=== PATIENT | female | born 1965 | race Caucasian/White ===

== ENCOUNTER 2021-02-02 19:01 | Inpatient (IN) ==
[2021-02-02] MEDS ORDERED: Ondansetron 4 MG/2 ML VIAL IVP PRN (22:49)
[2021-02-02] MEDS ORDERED: *HR* OxyCODONE Immed Rel 5 MG TABLET PO PRN (22:49)
[2021-02-02] MEDS ORDERED: *HR* HYDROcodone/Acet 5/325 mg TABLET PO PRN (22:49)
[2021-02-02] MEDS ORDERED: Naloxone 0.4 MG/ML INJ IVP PRN (22:49)
[2021-02-02 23:36] LABS: Basophils % 0.3 %; Eosinophils % 0.2 %; Hematocrit 31.8 % (35.3-44.9); Hemoglobin 10.1 g/dL (11.5-15.4); Immature Granulocytes % 3.3 % (0-4); Lymphocytes # 0.9 K/mcL (0.6-4.6); Lymphocytes % 7.9 %; Mean Corpuscular HGB Conc 31.8 g/dL (31.6-35.5); Mean Corpuscular Hemoglobin 29.5 pg (28.0-33.3); Mean Platelet Volume 8.8 fL (9.4-12.4); Monocytes % 8.3 %; Neutrophils # 9.5 K/mcL (1.6-8.9); Platelet Count 326 K/mcL (140-400); Red Blood Count 3.42 M/mcL (3.82-4.97); Red Cell Distribution Width 13.2 % (11.5-14.5); White Blood Count 11.9 K/mcL (4.3-11.1)
[2021-02-02] MEDS: Piperacillin/Tazobactam 3.375 GM in 0.9 % Sodium Chloride Mini Bag 100 ML IVPB SCH (23:39)
[2021-02-02] MEDS: 0.9 % Sodium Chloride 1,000 ML IVC SCH (23:40)
[2021-02-02 23:43] LABS: Alanine Aminotransferase 26 Units/L (7-52); Albumin 2.6 g/dL (3.5-5.7); Albumin/Globulin Ratio 0.7 (1.1-2.2); Alkaline Phosphatase 104 Units/L (34-104); Aspartate Amino Transferase 23 Units/L (13-39); BUN/Creatinine Ratio 26 (6-26); Bilirubin,Total 1.1 mg/dL (0.3-1.0); Blood Urea Nitrogen 16 mg/dL (6-20); Calcium 8.1 mg/dL (8.6-10.3); Carbon Dioxide 22 mEq/L (23-29); Chloride 102 mEq/L (98-107); Glucose 129 mg/dL (70-105); INR 1.7; Osmolality,Calculated 281 (280-300); Potassium 3.5 mEq/L (3.5-5.1); Prothrombin Time 19.3 Seconds (9.4-12.1); Sodium 134 mEq/L (136-145); Total Protein 6.6 g/dL (6.4-8.9); eGFR For African Americans > 60 (> 60); eGFR For Non-African Americans > 60 (> 60)
[2021-02-03 04:59] LABS: Hematocrit 31.1 % (35.3-44.9); Hemoglobin 9.8 g/dL (11.5-15.4); Mean Corpuscular HGB Conc 31.5 g/dL (31.6-35.5); Mean Corpuscular Hemoglobin 29.8 pg (28.0-33.3); Mean Corpuscular Volume 94.5 fL (83.0-100.0); Mean Platelet Volume 8.9 fL (9.4-12.4); Platelet Count 314 K/mcL (140-400); Red Blood Count 3.29 M/mcL (3.82-4.97); Red Cell Distribution Width 13.2 % (11.5-14.5); White Blood Count 11.4 K/mcL (4.3-11.1)
[2021-02-03 05:18] LABS: BUN/Creatinine Ratio 25 (6-26); Blood Urea Nitrogen 15 mg/dL (6-20); Carbon Dioxide 21 mEq/L (23-29); Chloride 103 mEq/L (98-107); Glucose 143 mg/dL (70-105); Osmolality,Calculated 279 (280-300); Potassium 3.4 mEq/L (3.5-5.1); Sodium 133 mEq/L (136-145); eGFR For African Americans > 60 (> 60); eGFR For Non-African Americans > 60 (> 60)
[2021-02-03] MEDS: *HR* Heparin 5,000 UNIT/ML VIAL SQ SCH ×3 (05:35→22:44)
[2021-02-03 05:40] LABS: Ferritin 649 ng/mL (10-120); Iron < 10 mcg/dL (50-170); Transferrin 115 mg/dL (203-362)
[2021-02-03 05:44] LABS: Folate 12.6 ng/mL (3.0-16.0)
[2021-02-03] MEDS: 0.9 % Sodium Chloride 1,000 ML IVC SCH (07:48)
[2021-02-03] MEDS: Piperacillin/Tazobactam 3.375 GM in 0.9 % Sodium Chloride Mini Bag 100 ML IVPB SCH ×2 (07:54→14:55)
[2021-02-03] MEDS: Vancomycin 1,250 MG/262.5 ML IV.SOLN IVPB SCH ×2 (08:18→20:18)
[2021-02-03 11:05] LABS: Bacteria,Urine Few per hpf (None-Few); Bilirubin,Urine Negative (Negative); Blood,Urine Negative (Negative); Clarity,Urine Turbid (Clear); Color,Urine Yellow (Yellow); Glucose,Urine (UA) Normal (Normal); Ketones,Urine Negative (Negative); Leukocyte Esterase,Urine Small (Negative); Nitrite,Urine Negative (Negative); Protein,Urine 50 mg/dL (Neg-Trace); Specific Gravity,Urine > 1.030 (1.010-1.025); Squamous Epithelial Cell,Urine Moderate per hpf (None-Few); WBC,Urine 15-30 per hpf (0-3)
[2021-02-03] MEDS ORDERED: Fluticasone Propionate Nasal 50 MCG/SPRAY BOTTLE NS PRN (14:18)
[2021-02-03] MEDS: BuPROPion XL (24 HR) 150 MG TABLET PO SCH (14:52)
[2021-02-03] MEDS: PARoxetine 30 MG TABLET PO SCH (20:17)
[2021-02-03] MEDS: Topiramate 100 MG TABLET PO SCH (20:18)
[2021-02-03 20:21] LABS: Acinetobacter baumannii by PCR Not Detected (Not Detect); Candida albicans by PCR Not Detected (Not Detect); Candida glabrata by PCR Not Detected (Not Detect); Candida krusei by PCR Not Detected (Not Detect); Candida parapsilosis by PCR Not Detected (Not Detect); Candida tropicalis by PCR Not Detected (Not Detect); Enterobacter cloacae Cmplx PCR Not Detected (Not Detect); Enterobacteriaceae by PCR Not Detected (Not Detect); Enterococcus by PCR Not Detected (Not Detect); Escherichia coli by PCR Not Detected (Not Detect); Klebsiella oxytoca by PCR Not Detected (Not Detect); Klebsiella pneumoniae by PCR Not Detected (Not Detect); Proteus by PCR Not Detected (Not Detect); Pseudomonas aeruginosa by PCR Not Detected (Not Detect); Serratia marcescens by PCR Not Detected (Not Detect); Staphylococcus aureus by PCR DETECTED (Not Detect); Staphylococcus by PCR Not Detected (Not Detect); Streptococcus agalactiae(B)PCR Not Detected (Not Detect); Streptococcus by PCR Not Detected (Not Detect); Streptococcus pneumoniae PCR Not Detected (Not Detect); Streptococcus pyogenes (A) PCR Not Detected (Not Detect); mecA Methicillin-Resist Gene Not Detected (Not Detect)
[2021-02-04] MEDS: Piperacillin/Tazobactam 3.375 GM in 0.9 % Sodium Chloride Mini Bag 100 ML IVPB SCH ×4 (00:49→23:56)
[2021-02-04 01:32] LABS: Basophils % 0.4 %; Eosinophils % 0.3 %; Hematocrit 29.4 % (35.3-44.9); Hemoglobin 9.2 g/dL (11.5-15.4); Immature Granulocytes % 4.1 % (0-4); Lymphocytes # 1.3 K/mcL (0.6-4.6); Lymphocytes % 12.3 %; Mean Corpuscular HGB Conc 31.3 g/dL (31.6-35.5); Mean Corpuscular Hemoglobin 29.3 pg (28.0-33.3); Mean Corpuscular Volume 93.6 fL (83.0-100.0); Monocytes % 9.9 %; Neutrophils # 7.7 K/mcL (1.6-8.9); Platelet Count 326 K/mcL (140-400); Red Blood Count 3.14 M/mcL (3.82-4.97); Red Cell Distribution Width 13.4 % (11.5-14.5); White Blood Count 10.5 K/mcL (4.3-11.1)
[2021-02-04 01:48] LABS: Alanine Aminotransferase 37 Units/L (7-52); Albumin 2.4 g/dL (3.5-5.7); Albumin/Globulin Ratio 0.7 (1.1-2.2); Alkaline Phosphatase 101 Units/L (34-104); Aspartate Amino Transferase 52 Units/L (13-39); BUN/Creatinine Ratio 26 (6-26); Bilirubin,Direct 0.3 mg/dL (0.0-0.2); Bilirubin,Indirect 0.4 mg/dL (0.0-1.0); Bilirubin,Total 0.7 mg/dL (0.3-1.0); Blood Urea Nitrogen 16 mg/dL (6-20); Calcium 7.5 mg/dL (8.6-10.3); Carbon Dioxide 20 mEq/L (23-29); Chloride 104 mEq/L (98-107); Globulin 3.6 g/dL (2.4-3.5); Glucose 127 mg/dL (70-105); Osmolality,Calculated 281 (280-300); Potassium 3.4 mEq/L (3.5-5.1); Sodium 134 mEq/L (136-145); eGFR For African Americans > 60 (> 60); eGFR For Non-African Americans > 60 (> 60)
[2021-02-04] MEDS: *HR* Heparin 5,000 UNIT/ML VIAL SQ SCH ×3 (05:19→21:39)
[2021-02-04] MEDS: BuPROPion XL (24 HR) 150 MG TABLET PO SCH (07:42)
[2021-02-04] MEDS: Loratadine 10 MG TABLET PO SCH (07:42)
[2021-02-04] MEDS: Acetaminophen 325 MG TABLET PO PRN ×2 (08:35→15:31)
[2021-02-04] MEDS: Vancomycin 1,250 MG/262.5 ML IV.SOLN IVPB SCH ×2 (10:20→21:38)
[2021-02-04] MEDS: Lactobacillus 1 EACH CAP.SPRINK PO SCH ×2 (10:20→21:29)
[2021-02-04] MEDS: PARoxetine 30 MG TABLET PO SCH (21:37)
[2021-02-04] MEDS: Topiramate 100 MG TABLET PO SCH (21:38)
[2021-02-05 06:10] LABS: Basophils % 0.3 %; Eosinophils # 0.1 K/mcL (0.0-0.6); Eosinophils % 1.3 %; Hematocrit 29.2 % (35.3-44.9); Immature Granulocytes % 4.1 % (0-4); Lymphocytes % 11.1 %; Mean Corpuscular HGB Conc 30.8 g/dL (31.6-35.5); Mean Corpuscular Hemoglobin 29.3 pg (28.0-33.3); Mean Corpuscular Volume 95.1 fL (83.0-100.0); Mean Platelet Volume 8.9 fL (9.4-12.4); Monocytes # 0.8 K/mcL (0.0-1.3); Monocytes % 8.3 %; Neutrophils # 6.9 K/mcL (1.6-8.9); Platelet Count 340 K/mcL (140-400); Red Blood Count 3.07 M/mcL (3.82-4.97); Red Cell Distribution Width 13.5 % (11.5-14.5); Segmented Neutrophils % 74.9 %; White Blood Count 9.2 K/mcL (4.3-11.1)
[2021-02-05 06:40] LABS: BUN/Creatinine Ratio 22 (6-26); Blood Urea Nitrogen 15 mg/dL (6-20); Carbon Dioxide 22 mEq/L (23-29); Chloride 105 mEq/L (98-107); Glucose 122 mg/dL (70-105); Osmolality,Calculated 280 (280-300); Potassium 3.9 mEq/L (3.5-5.1); Sodium 134 mEq/L (136-145); eGFR For African Americans > 60 (> 60); eGFR For Non-African Americans > 60 (> 60)
[2021-02-05] MEDS: *HR* Heparin 5,000 UNIT/ML VIAL SQ SCH ×3 (06:52→21:52)
[2021-02-05] MEDS: Piperacillin/Tazobactam 3.375 GM in 0.9 % Sodium Chloride Mini Bag 100 ML IVPB SCH ×2 (08:15→16:37)
[2021-02-05] MEDS: Lactobacillus 1 EACH CAP.SPRINK PO SCH ×2 (08:18→21:52)
[2021-02-05] MEDS: Loratadine 10 MG TABLET PO SCH (08:18)
[2021-02-05] MEDS: BuPROPion XL (24 HR) 150 MG TABLET PO SCH (08:19)
[2021-02-05] MEDS: Acetaminophen 325 MG TABLET PO PRN (11:22)
[2021-02-05] MEDS: PARoxetine 30 MG TABLET PO SCH (21:49)
[2021-02-05] MEDS: Topiramate 100 MG TABLET PO SCH (21:52)
[2021-02-06] MEDS: Piperacillin/Tazobactam 3.375 GM in 0.9 % Sodium Chloride Mini Bag 100 ML IVPB SCH ×2 (00:22→09:34)
[2021-02-06] MEDS: Acetaminophen 325 MG TABLET PO PRN ×2 (01:36→13:14)
[2021-02-06] MEDS: *HR* Heparin 5,000 UNIT/ML VIAL SQ SCH ×3 (05:55→21:57)
[2021-02-06 07:24] LABS: Basophils # 0.1 K/mcL (0.0-0.2); Basophils % 0.6 %; Eosinophils # 0.2 K/mcL (0.0-0.6); Eosinophils % 1.9 %; Hematocrit 29.7 % (35.3-44.9); Immature Granulocytes % 4.9 % (0-4); Lymphocytes # 1.1 K/mcL (0.6-4.6); Lymphocytes % 13.4 %; Mean Corpuscular HGB Conc 30.3 g/dL (31.6-35.5); Mean Corpuscular Hemoglobin 28.9 pg (28.0-33.3); Mean Corpuscular Volume 95.5 fL (83.0-100.0); Mean Platelet Volume 8.7 fL (9.4-12.4); Monocytes # 0.6 K/mcL (0.0-1.3); Monocytes % 7.2 %; Neutrophils # 5.6 K/mcL (1.6-8.9); Platelet Count 344 K/mcL (140-400); Red Blood Count 3.11 M/mcL (3.82-4.97); Red Cell Distribution Width 13.8 % (11.5-14.5); White Blood Count 7.8 K/mcL (4.3-11.1)
[2021-02-06 08:04] LABS: BUN/Creatinine Ratio 21 (6-26); Blood Urea Nitrogen 15 mg/dL (6-20); Calcium 8.1 mg/dL (8.6-10.3); Carbon Dioxide 23 mEq/L (23-29); Chloride 106 mEq/L (98-107); Glucose 133 mg/dL (70-105); Osmolality,Calculated 285 (280-300); Potassium 3.8 mEq/L (3.5-5.1); Sodium 136 mEq/L (136-145); eGFR For African Americans > 60 (> 60); eGFR For Non-African Americans > 60 (> 60)
[2021-02-06] MEDS: Loratadine 10 MG TABLET PO SCH (09:17)
[2021-02-06] MEDS: Lactobacillus 1 EACH CAP.SPRINK PO SCH ×2 (09:17→21:57)
[2021-02-06] MEDS: BuPROPion XL (24 HR) 150 MG TABLET PO SCH (09:17)
[2021-02-06 12:08] LABS: C-Reactive Protein 168 mg/L (Less than 10)
[2021-02-06] MEDS ORDERED: Gadolinium Contrast Agent (WT Based) IV PRN (15:06)
[2021-02-06] MEDS ORDERED: Perflutren Lipid Microsphere 1.3 ML in 0.9 % Sodium Chloride 8.7 ML IVP PRN (15:09)
[2021-02-06] MEDS: ceFAZolin 2,000 MG in 0.9 % Sodium Chloride 100 ML IVPB SCH (17:22)
[2021-02-06] MEDS: PARoxetine 30 MG TABLET PO SCH (21:56)
[2021-02-06] MEDS: Topiramate 100 MG TABLET PO SCH (21:57)
[2021-02-07] MEDS: ceFAZolin 2,000 MG in 0.9 % Sodium Chloride 100 ML IVPB SCH ×4 (00:25→23:17)
[2021-02-07 02:16] LABS: Basophils % 0.5 %; Eosinophils # 0.1 K/mcL (0.0-0.6); Eosinophils % 1.2 %; Hematocrit 28.3 % (35.3-44.9); Hemoglobin 8.8 g/dL (11.5-15.4); Immature Granulocytes % 4.3 % (0-4); Lymphocytes # 1.1 K/mcL (0.6-4.6); Lymphocytes % 13.4 %; Mean Corpuscular HGB Conc 31.1 g/dL (31.6-35.5); Mean Corpuscular Hemoglobin 29.6 pg (28.0-33.3); Mean Corpuscular Volume 95.3 fL (83.0-100.0); Mean Platelet Volume 8.8 fL (9.4-12.4); Monocytes # 0.7 K/mcL (0.0-1.3); Monocytes % 8.2 %; Platelet Count 368 K/mcL (140-400); Red Blood Count 2.97 M/mcL (3.82-4.97); Red Cell Distribution Width 13.8 % (11.5-14.5); Segmented Neutrophils % 72.4 %; White Blood Count 8.3 K/mcL (4.3-11.1)
[2021-02-07 02:44] LABS: BUN/Creatinine Ratio 22 (6-26); Blood Urea Nitrogen 14 mg/dL (6-20); Carbon Dioxide 20 mEq/L (23-29); Chloride 106 mEq/L (98-107); Glucose 117 mg/dL (70-105); Osmolality,Calculated 282 (280-300); Potassium 4.1 mEq/L (3.5-5.1); Sodium 135 mEq/L (136-145); eGFR For African Americans > 60 (> 60); eGFR For Non-African Americans > 60 (> 60)
[2021-02-07] MEDS: *HR* Heparin 5,000 UNIT/ML VIAL SQ SCH (05:25)
[2021-02-07] MEDS: Acetaminophen 325 MG TABLET PO PRN ×3 (05:26→21:23)
[2021-02-07] MEDS: Loratadine 10 MG TABLET PO SCH (08:36)
[2021-02-07] MEDS: Lactobacillus 1 EACH CAP.SPRINK PO SCH ×2 (08:36→21:23)
[2021-02-07] MEDS: BuPROPion XL (24 HR) 150 MG TABLET PO SCH (08:37)
[2021-02-07] MEDS: PARoxetine 30 MG TABLET PO SCH (21:23)
[2021-02-07] MEDS: Topiramate 100 MG TABLET PO SCH (21:24)
[2021-02-08 08:07] LABS: Basophils # 0.1 K/mcL (0.0-0.2); Basophils % 0.8 %; Eosinophils # 0.1 K/mcL (0.0-0.6); Eosinophils % 1.3 %; Hemoglobin 8.7 g/dL (11.5-15.4); Immature Granulocytes % 3.9 % (0-4); Lymphocytes # 1.1 K/mcL (0.6-4.6); Lymphocytes % 13.9 %; Mean Corpuscular Hemoglobin 28.7 pg (28.0-33.3); Mean Corpuscular Volume 95.7 fL (83.0-100.0); Mean Platelet Volume 8.7 fL (9.4-12.4); Monocytes # 0.7 K/mcL (0.0-1.3); Monocytes % 9.4 %; Neutrophils # 5.4 K/mcL (1.6-8.9); Platelet Count 371 K/mcL (140-400); Red Blood Count 3.03 M/mcL (3.82-4.97); Red Cell Distribution Width 13.7 % (11.5-14.5); Segmented Neutrophils % 70.7 %; White Blood Count 7.7 K/mcL (4.3-11.1)
[2021-02-08] MEDS: BuPROPion XL (24 HR) 150 MG TABLET PO SCH (08:10)
[2021-02-08] MEDS: Lactobacillus 1 EACH CAP.SPRINK PO SCH ×2 (08:10→20:03)
[2021-02-08] MEDS: Loratadine 10 MG TABLET PO SCH (08:10)
[2021-02-08] MEDS: ceFAZolin 2,000 MG in 0.9 % Sodium Chloride 100 ML IVPB SCH ×2 (08:13→15:29)
[2021-02-08 08:16] LABS: BUN/Creatinine Ratio 17 (6-26); Blood Urea Nitrogen 11 mg/dL (6-20); Calcium 8.1 mg/dL (8.6-10.3); Carbon Dioxide 22 mEq/L (23-29); Chloride 106 mEq/L (98-107); Glucose 103 mg/dL (70-105); Osmolality,Calculated 282 (280-300); Potassium 4.1 mEq/L (3.5-5.1); Sodium 136 mEq/L (136-145); eGFR For African Americans > 60 (> 60); eGFR For Non-African Americans > 60 (> 60)
[2021-02-08] MEDS: Acetaminophen 325 MG TABLET PO PRN ×2 (11:48→18:28)
[2021-02-08] MEDS: PARoxetine 30 MG TABLET PO SCH (20:02)
[2021-02-08] MEDS: Topiramate 100 MG TABLET PO SCH (20:03)
[2021-02-09] MEDS: ceFAZolin 2,000 MG in 0.9 % Sodium Chloride 100 ML IVPB SCH ×3 (01:26→18:15)
[2021-02-09 01:37] LABS: Adenovirus Not Detected (Not Detect); Bordetella Pertussis Not Detected (Not Detect); Chlamydophila pneumoniae Not Detected (Not Detect); Coronavirus 229E Not Detected (Not Detect); Coronavirus HKU1 Not Detected (Not Detect); Coronavirus NL63 Not Detected (Not Detect); Coronavirus OC43 Not Detected (Not Detect); Human Metapneumovirus Not Detected (Not Detect); Human Rhinovirus/Enterovirus Not Detected (Not Detect); Influenza A Subtype 2009 H1 Not Detected (Not Detect); Influenza B Not Detected (Not Detect); Mycoplasma pneumoniae Not Detected (Not Detect); Parainfluenza Virus 1 Not Detected (Not Detect); Parainfluenza Virus 2 Not Detected (Not Detect); Parainfluenza Virus 3 Not Detected (Not Detect); Parainfluenza Virus 4 Not Detected (Not Detect); Respiratory Syncytial Virus Not Detected (Not Detect); SARS-CoV-2 Not Detected (Not Detect)
[2021-02-09 04:32] LABS: Basophils # 0.1 K/mcL (0.0-0.2); Basophils % 0.9 %; Eosinophils # 0.1 K/mcL (0.0-0.6); Eosinophils % 1.1 %; Hematocrit 28.1 % (35.3-44.9); Hemoglobin 8.6 g/dL (11.5-15.4); Lymphocytes # 1.1 K/mcL (0.6-4.6); Lymphocytes % 14.3 %; Mean Corpuscular HGB Conc 30.6 g/dL (31.6-35.5); Mean Corpuscular Hemoglobin 28.8 pg (28.0-33.3); Mean Platelet Volume 8.4 fL (9.4-12.4); Monocytes # 0.7 K/mcL (0.0-1.3); Monocytes % 8.9 %; Neutrophils # 5.6 K/mcL (1.6-8.9); Platelet Count 375 K/mcL (140-400); Red Blood Count 2.99 M/mcL (3.82-4.97); Red Cell Distribution Width 13.8 % (11.5-14.5); Segmented Neutrophils % 70.8 %
[2021-02-09 04:50] LABS: BUN/Creatinine Ratio 17 (6-26); Blood Urea Nitrogen 11 mg/dL (6-20); Calcium 8.3 mg/dL (8.6-10.3); Carbon Dioxide 22 mEq/L (23-29); Chloride 106 mEq/L (98-107); Glucose 120 mg/dL (70-105); Osmolality,Calculated 281 (280-300); Potassium 4.1 mEq/L (3.5-5.1); Sodium 135 mEq/L (136-145); eGFR For African Americans > 60 (> 60); eGFR For Non-African Americans > 60 (> 60)
[2021-02-09] MEDS: Lactobacillus 1 EACH CAP.SPRINK PO SCH (07:54)
[2021-02-09] MEDS: Loratadine 10 MG TABLET PO SCH (07:54)
[2021-02-09] MEDS: BuPROPion XL (24 HR) 150 MG TABLET PO SCH (07:54)
[2021-02-09] MEDS ORDERED: Acetaminophen IV 1,000 MG/100 ML BAG IVPB ONE (09:44)
[2021-02-09] MEDS ORDERED: Bacitracin 50,000 UNIT, Polymyxin B Sulfate 500,000 UNIT, Sodium Chloride IRRigation 1,... IR ONE (13:00)
[2021-02-09] MEDS ORDERED: *HR* Succinylcholine 200 MG/10 ML VIAL IVP ONE (13:55)
[2021-02-09] MEDS ORDERED: Lidocaine -MPF 2% 2 ML VIAL ONE (13:55)
[2021-02-09] MEDS ORDERED: Ondansetron 4 MG/2 ML VIAL ONE (13:55)
[2021-02-09] MEDS ORDERED: Dexamethasone 4 MG/ML VIAL ONE (13:55)
[2021-02-09] MEDS ORDERED: *HR* Rocuronium Bromide 50 MG/5 ML VIAL ONE (13:55)
[2021-02-09] MEDS ORDERED: *HR* Propofol 200 MG/20 ML VIAL IVP ONE (13:56)
[2021-02-09] MEDS ORDERED: *HR* Midazolam HCl 2 MG/2 ML VIAL ONE (13:56)
[2021-02-09] MEDS ORDERED: *HR* FentaNYL (PF) 100 MCG/2 ML VIAL ONE (13:56)
[2021-02-09] MEDS ORDERED: Vancomycin 1,000 MG VIAL ONE (13:57)
[2021-02-09] MEDS ORDERED: *HR* Remifentanil 1 MG VIAL IVP ONE (13:59)
[2021-02-09] MEDS ORDERED: *HR* HYDROMORPHONE 2 MG/ML VIAL ONE (16:51)
[2021-02-09] MEDS ORDERED: *HR* HYDROcodone/Acet 5/325 mg TABLET PO PRN (17:18)
[2021-02-09] MEDS ORDERED: Ondansetron 4 MG/2 ML VIAL IVP PRN ×2 (17:18→18:17)
[2021-02-09] MEDS ORDERED: Promethazine 6.25 MG in Water for inj. (sterile) 20 ML IVPB PRN (17:18)
[2021-02-09] MEDS ORDERED: *HR* Labetalol 20 MG/4 ML SYRINGE IVP PRN (17:18)
[2021-02-09] MEDS ORDERED: *HR* HYDROmorphone (PF) 1 MG/ML SYRINGE IVP PRN (17:18)
[2021-02-09] MEDS ORDERED: *HR* HYDROmorphone (PF) 1 MG/ML SYRINGE ONE (17:32)
[2021-02-09] MEDS ORDERED: Ringers Solution, Lactated 1,000 ML ONE (17:37)
[2021-02-09] MEDS ORDERED: Naloxone 0.4 MG/ML INJ IVP PRN (18:17)
[2021-02-09] MEDS: *HR* OxyCODONE Immed Rel 5 MG TABLET PO PRN (18:59)
[2021-02-10] MEDS: *HR* HYDROcodone/Acet 5/325 mg TABLET PO PRN ×2 (02:28→22:52)
[2021-02-10] MEDS: Ringers Solution, Lactated 1,000 ML IVC SCH ×2 (03:42→14:17)
[2021-02-10] MEDS: Acetaminophen 325 MG TABLET PO PRN ×3 (03:48→19:43)
[2021-02-10] MEDS: *HR* OxyCODONE Immed Rel 5 MG TABLET PO PRN ×2 (07:43→14:17)
[2021-02-10] MEDS: MODAFINIL 200 MG PO SCH (08:10)
[2021-02-10] MEDS: CeFAZolin 2 GM/120 ML BAG IVPB SCH ×2 (16:13→23:54)
[2021-02-11] MEDS: Topiramate 100 MG TABLET PO SCH ×2 (00:21→20:19)
[2021-02-11] MEDS: Ringers Solution, Lactated 1,000 ML IVC SCH ×2 (01:22)
[2021-02-11 06:03] LABS: Basophils % 0.6 %; Eosinophils # 0.1 K/mcL (0.0-0.6); Eosinophils % 1.4 %; Hematocrit 25.7 % (35.3-44.9); Hemoglobin 7.8 g/dL (11.5-15.4); Immature Granulocytes % 2.7 % (0-4); Lymphocytes % 14.3 %; Mean Corpuscular HGB Conc 30.4 g/dL (31.6-35.5); Mean Corpuscular Hemoglobin 28.8 pg (28.0-33.3); Mean Corpuscular Volume 94.8 fL (83.0-100.0); Mean Platelet Volume 8.3 fL (9.4-12.4); Monocytes # 0.8 K/mcL (0.0-1.3); Monocytes % 11.3 %; Neutrophils # 4.9 K/mcL (1.6-8.9); Platelet Count 342 K/mcL (140-400); Red Blood Count 2.71 M/mcL (3.82-4.97); Red Cell Distribution Width 13.7 % (11.5-14.5); Segmented Neutrophils % 69.7 %
[2021-02-11 06:24] LABS: BUN/Creatinine Ratio 17 (6-26); Blood Urea Nitrogen 10 mg/dL (6-20); Calcium 7.9 mg/dL (8.6-10.3); Carbon Dioxide 22 mEq/L (23-29); Chloride 105 mEq/L (98-107); Glucose 121 mg/dL (70-105); Osmolality,Calculated 278 (280-300); Potassium 3.8 mEq/L (3.5-5.1); Sodium 134 mEq/L (136-145); eGFR For African Americans > 60 (> 60); eGFR For Non-African Americans > 60 (> 60)
[2021-02-11] MEDS: CeFAZolin 2 GM/120 ML BAG IVPB SCH ×3 (07:38→23:42)
[2021-02-11] MEDS: MODAFINIL 200 MG PO SCH (07:38)
[2021-02-11] MEDS ORDERED: Fluticasone Propionate Nasal 50 MCG/SPRAY BOTTLE NS PRN (09:04)
[2021-02-11] MEDS ORDERED: Ondansetron ODT 4 MG TAB.RAPDIS SL PRN (09:23)
[2021-02-11] MEDS: BuPROPion XL (24 HR) 150 MG TABLET PO SCH (11:32)
[2021-02-11] MEDS: polyethylene glycoL 3350 17 GM POWD.PACK PO SCH ×2 (11:32→20:17)
[2021-02-11] MEDS: Loratadine 10 MG TABLET PO SCH (11:32)
[2021-02-11] MEDS: Acetaminophen 325 MG TABLET PO PRN ×2 (11:37→20:17)
[2021-02-11] MEDS: *HR* HYDROcodone/Acet 5/325 mg TABLET PO PRN (14:39)
[2021-02-11] MEDS: PARoxetine 30 MG TABLET PO SCH (20:18)
[2021-02-12 01:01] LABS: Basophils % 0.5 %; Eosinophils # 0.2 K/mcL (0.0-0.6); Eosinophils % 2.3 %; Hematocrit 27.4 % (35.3-44.9); Hemoglobin 8.2 g/dL (11.5-15.4); Immature Granulocytes % 2.3 % (0-4); Lymphocytes # 1.2 K/mcL (0.6-4.6); Lymphocytes % 18.2 %; Mean Corpuscular HGB Conc 29.9 g/dL (31.6-35.5); Mean Corpuscular Hemoglobin 29.4 pg (28.0-33.3); Mean Corpuscular Volume 98.2 fL (83.0-100.0); Mean Platelet Volume 8.6 fL (9.4-12.4); Monocytes # 0.8 K/mcL (0.0-1.3); Monocytes % 12.9 %; Neutrophils # 4.2 K/mcL (1.6-8.9); Platelet Count 328 K/mcL (140-400); Red Blood Count 2.79 M/mcL (3.82-4.97); Red Cell Distribution Width 13.7 % (11.5-14.5); Segmented Neutrophils % 63.8 %; White Blood Count 6.5 K/mcL (4.3-11.1)
[2021-02-12 01:04] LABS: BUN/Creatinine Ratio 13 (6-26); Blood Urea Nitrogen 9 mg/dL (6-20); Calcium 7.9 mg/dL (8.6-10.3); Carbon Dioxide 23 mEq/L (23-29); Chloride 106 mEq/L (98-107); Glucose 137 mg/dL (70-105); Osmolality,Calculated 285 (280-300); Potassium 3.7 mEq/L (3.5-5.1); Sodium 137 mEq/L (136-145); eGFR For African Americans > 60 (> 60); eGFR For Non-African Americans > 60 (> 60)
[2021-02-12] MEDS: Acetaminophen 325 MG TABLET PO PRN (04:25)
[2021-02-12] MEDS: *HR* HYDROcodone/Acet 5/325 mg TABLET PO PRN ×3 (05:45→21:37)
[2021-02-12] MEDS: Loratadine 10 MG TABLET PO SCH (07:56)
[2021-02-12] MEDS: polyethylene glycoL 3350 17 GM POWD.PACK PO SCH ×2 (07:56→21:24)
[2021-02-12] MEDS: BuPROPion XL (24 HR) 150 MG TABLET PO SCH (07:56)
[2021-02-12] MEDS: MODAFINIL 200 MG PO SCH (07:57)
[2021-02-12] MEDS: CeFAZolin 2 GM/120 ML BAG IVPB SCH ×2 (07:57→16:22)
[2021-02-12] MEDS: PARoxetine 30 MG TABLET PO SCH (21:23)
[2021-02-12] MEDS: Topiramate 100 MG TABLET PO SCH (21:24)
[2021-02-12] MEDS: DiphenhydraMINE CREAM 28.4 GM TUBE TP PRN (22:18)
[2021-02-13] MEDS: CeFAZolin 2 GM/120 ML BAG IVPB SCH ×3 (00:04→16:40)
[2021-02-13 02:05] LABS: Basophils % 0.5 %; Eosinophils # 0.3 K/mcL (0.0-0.6); Eosinophils % 3.5 %; Hematocrit 25.7 % (35.3-44.9); Hemoglobin 7.6 g/dL (11.5-15.4); Immature Granulocytes % 2.9 % (0-4); Lymphocytes % 13.5 %; Mean Corpuscular HGB Conc 29.6 g/dL (31.6-35.5); Mean Corpuscular Hemoglobin 28.7 pg (28.0-33.3); Mean Platelet Volume 8.6 fL (9.4-12.4); Monocytes # 0.9 K/mcL (0.0-1.3); Monocytes % 11.7 %; Platelet Count 325 K/mcL (140-400); Red Blood Count 2.65 M/mcL (3.82-4.97); Red Cell Distribution Width 13.6 % (11.5-14.5); Segmented Neutrophils % 67.9 %; White Blood Count 7.3 K/mcL (4.3-11.1)
[2021-02-13 02:21] LABS: BUN/Creatinine Ratio 15 (6-26); Blood Urea Nitrogen 9 mg/dL (6-20); Calcium 7.9 mg/dL (8.6-10.3); Carbon Dioxide 22 mEq/L (23-29); Chloride 106 mEq/L (98-107); Glucose 134 mg/dL (70-105); Osmolality,Calculated 281 (280-300); Sodium 135 mEq/L (136-145); eGFR For African Americans > 60 (> 60); eGFR For Non-African Americans > 60 (> 60)
[2021-02-13] MEDS: Acetaminophen 325 MG TABLET PO PRN ×2 (03:06→18:48)
[2021-02-13 06:09] LABS: % Iron Saturation 8 % (15-50); Iron 15 mcg/dL (50-170); Transferrin 134 mg/dL (203-362)
[2021-02-13 06:19] LABS: Ferritin 393 ng/mL (10-120)
[2021-02-13 06:24] LABS: Folate 6.5 ng/mL (3.0-16.0)
[2021-02-13] MEDS: MODAFINIL 200 MG PO SCH (08:02)
[2021-02-13] MEDS: Loratadine 10 MG TABLET PO SCH (10:05)
[2021-02-13] MEDS: BuPROPion XL (24 HR) 150 MG TABLET PO SCH (10:05)
[2021-02-13] MEDS: polyethylene glycoL 3350 17 GM POWD.PACK PO SCH ×2 (10:05→19:45)
[2021-02-13] MEDS: PARoxetine 30 MG TABLET PO SCH (19:45)
[2021-02-13] MEDS: Topiramate 100 MG TABLET PO SCH (19:45)
[2021-02-14 00:36] LABS: Basophils % 0.5 %; Eosinophils # 0.2 K/mcL (0.0-0.6); Eosinophils % 3.9 %; Hematocrit 27.7 % (35.3-44.9); Hemoglobin 8.4 g/dL (11.5-15.4); Immature Granulocytes % 3.6 % (0-4); Lymphocytes # 0.7 K/mcL (0.6-4.6); Lymphocytes % 12.4 %; Mean Corpuscular HGB Conc 30.3 g/dL (31.6-35.5); Mean Corpuscular Hemoglobin 29.5 pg (28.0-33.3); Mean Corpuscular Volume 97.2 fL (83.0-100.0); Mean Platelet Volume 8.5 fL (9.4-12.4); Monocytes # 0.7 K/mcL (0.0-1.3); Monocytes % 11.9 %; Platelet Count 349 K/mcL (140-400); Red Blood Count 2.85 M/mcL (3.82-4.97); Red Cell Distribution Width 13.4 % (11.5-14.5); Segmented Neutrophils % 67.7 %; White Blood Count 5.9 K/mcL (4.3-11.1)
[2021-02-14] MEDS: CeFAZolin 2 GM/120 ML BAG IVPB SCH ×4 (00:49→23:36)
[2021-02-14 00:51] LABS: BUN/Creatinine Ratio 13 (6-26); Blood Urea Nitrogen 8 mg/dL (6-20); Calcium 8.1 mg/dL (8.6-10.3); Carbon Dioxide 24 mEq/L (23-29); Chloride 103 mEq/L (98-107); Glucose 97 mg/dL (70-105); Osmolality,Calculated 276 (280-300); Potassium 3.9 mEq/L (3.5-5.1); Sodium 134 mEq/L (136-145); eGFR For African Americans > 60 (> 60); eGFR For Non-African Americans > 60 (> 60)
[2021-02-14] MEDS: Loratadine 10 MG TABLET PO SCH (07:49)
[2021-02-14] MEDS: BuPROPion XL (24 HR) 150 MG TABLET PO SCH (07:49)
[2021-02-14] MEDS: polyethylene glycoL 3350 17 GM POWD.PACK PO SCH ×2 (07:51→20:21)
[2021-02-14] MEDS: MODAFINIL 200 MG PO SCH (09:10)
[2021-02-14] MEDS: Acetaminophen 325 MG TABLET PO PRN (19:10)
[2021-02-14] MEDS: Topiramate 100 MG TABLET PO SCH (20:17)
[2021-02-14] MEDS: PARoxetine 30 MG TABLET PO SCH (20:17)
[2021-02-14] MEDS: DiphenhydraMINE CREAM 28.4 GM TUBE TP PRN (20:21)
[2021-02-15 02:30] LABS: Basophils % 0.7 %; Eosinophils # 0.1 K/mcL (0.0-0.6); Eosinophils % 2.4 %; Hematocrit 28.4 % (35.3-44.9); Hemoglobin 8.3 g/dL (11.5-15.4); Immature Granulocytes % 3.8 % (0-4); Lymphocytes # 0.7 K/mcL (0.6-4.6); Lymphocytes % 17.5 %; Mean Corpuscular HGB Conc 29.2 g/dL (31.6-35.5); Mean Corpuscular Volume 95.9 fL (83.0-100.0); Mean Platelet Volume 8.8 fL (9.4-12.4); Monocytes # 0.8 K/mcL (0.0-1.3); Monocytes % 18.2 %; Neutrophils # 2.4 K/mcL (1.6-8.9); Platelet Count 305 K/mcL (140-400); Red Blood Count 2.96 M/mcL (3.82-4.97); Red Cell Distribution Width 13.6 % (11.5-14.5); Segmented Neutrophils % 57.4 %; White Blood Count 4.2 K/mcL (4.3-11.1)
[2021-02-15 02:53] LABS: BUN/Creatinine Ratio 12 (6-26); Blood Urea Nitrogen 9 mg/dL (6-20); Calcium 7.9 mg/dL (8.6-10.3); Carbon Dioxide 23 mEq/L (23-29); Chloride 101 mEq/L (98-107); Glucose 101 mg/dL (70-105); Osmolality,Calculated 277 (280-300); Potassium 3.9 mEq/L (3.5-5.1); Sodium 134 mEq/L (136-145); eGFR For African Americans > 60 (> 60); eGFR For Non-African Americans > 60 (> 60)
[2021-02-15] MEDS: Loratadine 10 MG TABLET PO SCH (08:29)
[2021-02-15] MEDS: BuPROPion XL (24 HR) 150 MG TABLET PO SCH (08:29)
[2021-02-15] MEDS: CeFAZolin 2 GM/120 ML BAG IVPB SCH (08:30)
[2021-02-15] MEDS: polyethylene glycoL 3350 17 GM POWD.PACK PO SCH ×2 (08:30→08:33)
[2021-02-15 10:58] VITALS: BP 119/78
[2021-02-15] MEDS ORDERED: methylPREDNISolone 4 MG TABLET PO ONE (12:36)
[2021-02-15] MEDS: Acetaminophen 325 MG TABLET PO PRN (12:49)
[2021-02-15] MEDS ORDERED: methylPREDNISolone 4 MG TABLET PO SCH (17:00)
== END 2021-02-15 14:01 | disposition home health service (06) | DRG 853 ==
LOC: 3BNU → SUATTDRO 21:43 → 3NENU 02-09 15:08
PROVIDERS: ADMIT Internal Medicine; ATTEND Internal Medicine

== ENCOUNTER 2021-05-10 07:50 | Inpatient (IN) ==
[2021-05-11] MEDS ORDERED: Naloxone 0.4 MG/ML INJ IVP PRN (09:11)
[2021-05-11] MEDS ORDERED: *HR* OxyCODONE Immed Rel 5 MG TABLET PO PRN (09:11)
[2021-05-11] MEDS ORDERED: Ondansetron 4 MG/2 ML VIAL IVP PRN (09:11)
[2021-05-11] MEDS ORDERED: Melatonin 3 MG TABLET PO PRN (09:11)
[2021-05-11] MEDS ORDERED: Gadolinium Contrast Agent (WT Based) IV PRN (10:50)
[2021-05-11 11:09] LABS: BUN/Creatinine Ratio 25 (6-26); Blood Urea Nitrogen 19 mg/dL (6-20); Calcium 8.8 mg/dL (8.6-10.3); Carbon Dioxide 19 mEq/L (23-29); Chloride 106 mEq/L (98-107); Glucose 190 mg/dL (70-105); Osmolality,Calculated 287 (280-300); Potassium 3.8 mEq/L (3.5-5.1); Sodium 135 mEq/L (136-145); eGFR For African Americans > 60 (> 60); eGFR For Non-African Americans > 60 (> 60)
[2021-05-11 11:25] LABS: INR 1.3; Prothrombin Time 15.4 Seconds (9.4-12.1)
[2021-05-11 11:30] LABS: Basophils % 0.1 %; Hematocrit 35.2 % (35.3-44.9); Hemoglobin 10.3 g/dL (11.5-15.4); Immature Granulocytes % 0.8 % (0-4); Lymphocytes # 0.4 K/mcL (0.6-4.6); Lymphocytes % 5.2 %; Mean Corpuscular HGB Conc 29.3 g/dL (31.6-35.5); Mean Corpuscular Hemoglobin 25.6 pg (28.0-33.3); Mean Corpuscular Volume 87.6 fL (83.0-100.0); Mean Platelet Volume 9.4 fL (9.4-12.4); Monocytes # 0.3 K/mcL (0.0-1.3); Monocytes % 3.1 %; Neutrophils # 7.2 K/mcL (1.6-8.9); Platelet Count 328 K/mcL (140-400); Red Blood Count 4.02 M/mcL (3.82-4.97); Red Cell Distribution Width 14.2 % (11.5-14.5); Segmented Neutrophils % 90.8 %
[2021-05-11] MEDS: DilTIAZem CD (24hr) 240 MG CAP.ER.24H PO SCH (14:34)
[2021-05-11] MEDS: Acetaminophen 325 MG TABLET PO PRN (14:38)
[2021-05-11] MEDS ORDERED: GADOBUTROL 30 MMOL/30 ML VIAL IVP ONE (15:45)
[2021-05-11] MEDS ORDERED: Topiramate 100 MG TABLET PO SCH (21:00)
[2021-05-11] MEDS: Famotidine 20 MG TABLET PO SCH (21:16)
[2021-05-11] MEDS: PARoxetine 20 MG TABLET PO SCH (21:23)
[2021-05-12 00:01] LABS: Adenovirus Not Detected (Not Detect); Bordetella Pertussis Not Detected (Not Detect); Chlamydophila pneumoniae Not Detected (Not Detect); Coronavirus 229E Not Detected (Not Detect); Coronavirus HKU1 Not Detected (Not Detect); Coronavirus NL63 Not Detected (Not Detect); Coronavirus OC43 Not Detected (Not Detect); Human Metapneumovirus Not Detected (Not Detect); Human Rhinovirus/Enterovirus Not Detected (Not Detect); Influenza A Subtype 2009 H1 Not Detected (Not Detect); Influenza B Not Detected (Not Detect); Mycoplasma pneumoniae Not Detected (Not Detect); Parainfluenza Virus 1 Not Detected (Not Detect); Parainfluenza Virus 2 Not Detected (Not Detect); Parainfluenza Virus 3 Not Detected (Not Detect); Parainfluenza Virus 4 Not Detected (Not Detect); Respiratory Syncytial Virus Not Detected (Not Detect); SARS-CoV-2 Not Detected (Not Detect)
[2021-05-12] MEDS: *HR* Enoxaparin 40 MG/0.4 ML SYRINGE SQ SCH (05:15)
[2021-05-12] MEDS: Famotidine 20 MG TABLET PO SCH ×2 (08:10→21:44)
[2021-05-12] MEDS: Loratadine 10 MG TABLET PO SCH (08:10)
[2021-05-12] MEDS: BuPROPion XL (24 HR) 150 MG TABLET PO SCH (08:10)
[2021-05-12] MEDS: DilTIAZem CD (24hr) 240 MG CAP.ER.24H PO SCH (08:11)
[2021-05-12] MEDS ORDERED: modafiniL 100 MG TABLET PO SCH (09:00)
[2021-05-12] MEDS: Magic Mouthwash 10 ML UD Cup PO PRN (17:04)
[2021-05-12] MEDS: PARoxetine 20 MG TABLET PO SCH (21:44)
[2021-05-12] MEDS: Topiramate 100 MG TABLET PO SCH (21:44)
[2021-05-12] MEDS: Acetaminophen 325 MG TABLET PO PRN (21:46)
[2021-05-13] MEDS: *HR* Enoxaparin 40 MG/0.4 ML SYRINGE SQ SCH (06:14)
[2021-05-13] MEDS: Magic Mouthwash 10 ML UD Cup PO PRN (06:21)
[2021-05-13 06:40] LABS: Hematocrit 35.7 % (35.3-44.9); Hemoglobin 10.3 g/dL (11.5-15.4); Mean Corpuscular HGB Conc 28.9 g/dL (31.6-35.5); Mean Corpuscular Hemoglobin 25.4 pg (28.0-33.3); Mean Corpuscular Volume 87.9 fL (83.0-100.0); Mean Platelet Volume 8.7 fL (9.4-12.4); Platelet Count 452 K/mcL (140-400); Red Blood Count 4.06 M/mcL (3.82-4.97); Red Cell Distribution Width 14.6 % (11.5-14.5); White Blood Count 8.6 K/mcL (4.3-11.1)
[2021-05-13 06:57] LABS: BUN/Creatinine Ratio 34 (6-26); Blood Urea Nitrogen 22 mg/dL (6-20); Calcium 8.6 mg/dL (8.6-10.3); Carbon Dioxide 24 mEq/L (23-29); Chloride 105 mEq/L (98-107); Glucose 108 mg/dL (70-105); Osmolality,Calculated 288 (280-300); Potassium 3.9 mEq/L (3.5-5.1); Sodium 137 mEq/L (136-145); eGFR For African Americans > 60 (> 60); eGFR For Non-African Americans > 60 (> 60)
[2021-05-13] MEDS: Loratadine 10 MG TABLET PO SCH (07:55)
[2021-05-13] MEDS: DilTIAZem CD (24hr) 240 MG CAP.ER.24H PO SCH (07:55)
[2021-05-13] MEDS: Famotidine 20 MG TABLET PO SCH ×2 (07:56→21:27)
[2021-05-13] MEDS: BuPROPion XL (24 HR) 150 MG TABLET PO SCH (07:56)
[2021-05-13] MEDS ORDERED: NON-FORMULARY MEDICATION 1 EACH EACH (Topiramate [Topamax] 50 MG Tablet) PO SCH (09:00)
[2021-05-13] MEDS: Acetaminophen 325 MG TABLET PO PRN (21:27)
[2021-05-13] MEDS: Topiramate 100 MG TABLET PO SCH (21:27)
[2021-05-13] MEDS: PARoxetine 20 MG TABLET PO SCH (21:28)
[2021-05-14] MEDS: *HR* Enoxaparin 40 MG/0.4 ML SYRINGE SQ SCH (05:55)
[2021-05-14 06:52] LABS: Hematocrit 30.2 % (35.3-44.9); Hemoglobin 9.3 g/dL (11.5-15.4); Mean Corpuscular HGB Conc 30.8 g/dL (31.6-35.5); Mean Corpuscular Hemoglobin 25.9 pg (28.0-33.3); Mean Corpuscular Volume 84.1 fL (83.0-100.0); Mean Platelet Volume 8.9 fL (9.4-12.4); Platelet Count 307 K/mcL (140-400); Red Blood Count 3.59 M/mcL (3.82-4.97); Red Cell Distribution Width 14.8 % (11.5-14.5); White Blood Count 6.4 K/mcL (4.3-11.1)
[2021-05-14 07:12] LABS: BUN/Creatinine Ratio 28 (6-26); Blood Urea Nitrogen 16 mg/dL (6-20); Calcium 8.2 mg/dL (8.6-10.3); Carbon Dioxide 22 mEq/L (23-29); Chloride 105 mEq/L (98-107); Glucose 117 mg/dL (70-105); Osmolality,Calculated 280 (280-300); Potassium 3.8 mEq/L (3.5-5.1); Sodium 134 mEq/L (136-145); eGFR For African Americans > 60 (> 60); eGFR For Non-African Americans > 60 (> 60)
[2021-05-14] MEDS: Famotidine 20 MG TABLET PO SCH ×2 (09:02→20:16)
[2021-05-14] MEDS: Loratadine 10 MG TABLET PO SCH (09:03)
[2021-05-14] MEDS: DilTIAZem CD (24hr) 240 MG CAP.ER.24H PO SCH (09:03)
[2021-05-14] MEDS: BuPROPion XL (24 HR) 150 MG TABLET PO SCH (09:03)
[2021-05-14] MEDS ORDERED: *HR* HYDROcodone/Acet 10/325 mg TABLET PO PRN (11:14)
[2021-05-14] MEDS ORDERED: 0.9 % Sodium Chloride 500 ML ONE (12:41)
[2021-05-14] MEDS: PARoxetine 20 MG TABLET PO SCH (20:16)
[2021-05-14] MEDS: Topiramate 100 MG TABLET PO SCH (20:16)
[2021-05-15] MEDS: *HR* Enoxaparin 40 MG/0.4 ML SYRINGE SQ SCH (06:03)
[2021-05-15 07:50] VITALS: TEMP 98.5
[2021-05-15 08:00] LABS: Hematocrit 31.5 % (35.3-44.9); Hemoglobin 9.4 g/dL (11.5-15.4); Mean Corpuscular HGB Conc 29.8 g/dL (31.6-35.5); Mean Corpuscular Hemoglobin 26.1 pg (28.0-33.3); Mean Corpuscular Volume 87.5 fL (83.0-100.0); Mean Platelet Volume 10.7 fL (9.4-12.4); Platelet Count 276 K/mcL (140-400); Red Cell Distribution Width 14.9 % (11.5-14.5); White Blood Count 6.9 K/mcL (4.3-11.1)
[2021-05-15 08:27] LABS: BUN/Creatinine Ratio 21 (6-26); Blood Urea Nitrogen 12 mg/dL (6-20); Calcium 8.6 mg/dL (8.6-10.3); Carbon Dioxide 22 mEq/L (23-29); Chloride 103 mEq/L (98-107); Glucose 108 mg/dL (70-105); Osmolality,Calculated 278 (280-300); Potassium 3.9 mEq/L (3.5-5.1); Sodium 134 mEq/L (136-145); eGFR For African Americans > 60 (> 60); eGFR For Non-African Americans > 60 (> 60)
[2021-05-15] MEDS: Loratadine 10 MG TABLET PO SCH (09:34)
[2021-05-15] MEDS: DilTIAZem CD (24hr) 240 MG CAP.ER.24H PO SCH (09:34)
[2021-05-15] MEDS: Famotidine 20 MG TABLET PO SCH (09:34)
[2021-05-15] MEDS: BuPROPion XL (24 HR) 150 MG TABLET PO SCH (09:35)
[2021-05-15 11:46] VITALS: BP 116/80; PULSE 91; O2SAT 96
== END 2021-05-15 14:54 | disposition home or self-care (01) | DRG 872 ==
LOC: 3NENU → SUATTDRO 05-11 08:51
PROVIDERS: ADMIT Internal Medicine; ATTEND Internal Medicine

== ENCOUNTER 2021-09-11 13:37 | Inpatient (IN) ==
[2021-09-11 17:29] LABS: Eosinophils % 0.8 %; Immature Granulocytes % 1.5 % (0-4)
[2021-09-11 17:30] LABS: Basophils % 0.4 %; Eosinophils # 0.1 K/mcL (0.0-0.6); Hematocrit 29.8 % (35.3-44.9); Hemoglobin 8.1 g/dL (11.5-15.4); Lymphocytes # 1.4 K/mcL (0.6-4.6); Mean Corpuscular HGB Conc 27.2 g/dL (31.6-35.5); Mean Corpuscular Hemoglobin 22.9 pg (28.0-33.3); Mean Corpuscular Volume 84.4 fL (83.0-100.0); Mean Platelet Volume 8.8 fL (9.4-12.4); Monocytes # 0.6 K/mcL (0.0-1.3); Monocytes % 7.9 %; Neutrophils # 5.2 K/mcL (1.6-8.9); Platelet Count 383 K/mcL (140-400); Red Blood Count 3.53 M/mcL (3.82-4.97); Red Cell Distribution Width 16.1 % (11.5-14.5); Segmented Neutrophils % 70.4 %; White Blood Count 7.4 K/mcL (4.3-11.1)
[2021-09-11 17:36] LABS: INR 1.4; Prothrombin Time 15.6 Seconds (9.4-12.1)
[2021-09-11 17:47] LABS: Alanine Aminotransferase 11 Units/L (7-52); Albumin 2.7 g/dL (3.5-5.7); Albumin/Globulin Ratio 0.6 (1.1-2.2); Alkaline Phosphatase 85 Units/L (34-104); Aspartate Amino Transferase 9 Units/L (13-39); BUN/Creatinine Ratio 21 (6-26); Bilirubin,Total 0.3 mg/dL (0.3-1.0); Blood Urea Nitrogen 15 mg/dL (6-20); Calcium 8.4 mg/dL (8.6-10.3); Carbon Dioxide 22 mEq/L (23-29); Chloride 103 mEq/L (98-107); Globulin 4.4 g/dL (2.4-3.5); Glucose 92 mg/dL (70-105); Osmolality,Calculated 274 (280-300); Potassium 3.6 mEq/L (3.5-5.1); Sodium 132 mEq/L (136-145); Total Protein 7.1 g/dL (6.4-8.9); eGFR For African Americans > 60 (> 60); eGFR For Non-African Americans > 60 (> 60)
[2021-09-11 17:52] LABS: C-Reactive Protein 163 mg/L (Less than 10)
[2021-09-11 17:59] LABS: Hypochromasia Present (Not Present); Platelet Estimate Normal (Normal)
[2021-09-11 19:09] LABS: Influenza A PCR Negative (Negative); Influenza B PCR Negative (Negative); Resp. Syncytial Virus PCR Negative (Negative)
[2021-09-11 19:10] LABS: SARS-CoV-2 by PCR (In House) Negative (Negative)
[2021-09-11 19:12] LABS: Bacteria,Urine Many per hpf (None-Few); Bilirubin,Urine Negative (Negative); Blood,Urine Negative (Negative); Clarity,Urine Turbid (Clear); Color,Urine Yellow (Yellow); Glucose,Urine (UA) Normal (Normal); Hyaline Casts,Urine Few per lpf (None Seen); Ketones,Urine Negative (Negative); Leukocyte Esterase,Urine Moderate (Negative); Mucus,Urine Few per lpf (None-Few); Nitrite,Urine Positive (Negative); PH,Urine 5.5 pH Units (5.0-8.0); Protein,Urine 30 mg/dL (Neg-Trace); RBC,Urine 0-3 per hpf (0-3); Specific Gravity,Urine 1.027 (1.010-1.025); Squamous Epithelial Cell,Urine Few per hpf (None-Few); Urobilinogen,Urine Normal (Normal)
[2021-09-11] MEDS: Vancomycin 2,000 MG/520 ML IV.SOLN IVPB ONE ×2 (20:20→20:45)
[2021-09-11] MEDS ORDERED: 0.9 % Sodium Chloride 1,000 ML IV ONE (22:30)
[2021-09-11] MEDS ORDERED: Piperacillin/Tazobactam 3.375 GM in 0.9 % Sodium Chloride Mini Bag 100 ML IVPB ONE (22:56)
[2021-09-11] MEDS ORDERED: 0.9 % Sodium Chloride 1,000 ML IVC ONE (23:28)
[2021-09-12] MEDS: DAPTOmycin 450 MG in 0.9 % Sodium Chloride 100 ML IVPB SCH ×2 (00:01→22:49)
[2021-09-12] MEDS ORDERED: 0.9 % Sodium Chloride 1,000 ML IVC ONE ×2 (04:49→05:15)
[2021-09-12] MEDS ORDERED: Isovue-370 500 ML BOTTLE IVP ONE (04:57)
[2021-09-12] MEDS ORDERED: Naloxone 0.4 MG/ML INJ IVP PRN (05:02)
[2021-09-12] MEDS ORDERED: *HR* HYDROcodone/Acet 7.5/325 mg TABLET PO PRN (15:47)
[2021-09-12] MEDS ORDERED: NON-FORMULARY MEDICATION 1 EACH EACH (Olopatadine Hcl [Pataday] 2.5 ML Drops) BOTH EYES PRN (15:47)
[2021-09-12] MEDS: Topiramate 25 MG TABLET PO SCH (21:50)
[2021-09-13 02:42] LABS: Immature Granulocytes % 1.1 % (0-4); Mean Corpuscular Hemoglobin 23.4 pg (28.0-33.3); Red Blood Count 2.78 M/mcL (3.82-4.97)
[2021-09-13 02:43] LABS: Basophils % 0.4 %; Eosinophils # 0.1 K/mcL (0.0-0.6); Eosinophils % 2.5 %; Hematocrit 23.1 % (35.3-44.9); Hemoglobin 6.5 g/dL (11.5-15.4); Lymphocytes # 1.1 K/mcL (0.6-4.6); Lymphocytes % 18.8 %; Mean Corpuscular HGB Conc 28.1 g/dL (31.6-35.5); Mean Corpuscular Volume 83.1 fL (83.0-100.0); Mean Platelet Volume 8.9 fL (9.4-12.4); Monocytes # 0.6 K/mcL (0.0-1.3); Monocytes % 10.4 %; Neutrophils # 3.7 K/mcL (1.6-8.9); Platelet Count 281 K/mcL (140-400); Segmented Neutrophils % 66.8 %; White Blood Count 5.6 K/mcL (4.3-11.1)
[2021-09-13 03:00] LABS: BUN/Creatinine Ratio 22 (6-26); Blood Urea Nitrogen 12 mg/dL (6-20); Calcium 7.2 mg/dL (8.6-10.3); Carbon Dioxide 20 mEq/L (23-29); Chloride 107 mEq/L (98-107); Glucose 165 mg/dL (70-105); Osmolality,Calculated 283 (280-300); Potassium 3.2 mEq/L (3.5-5.1); Sodium 135 mEq/L (136-145); eGFR For African Americans > 60 (> 60); eGFR For Non-African Americans > 60 (> 60)
[2021-09-13 03:06] LABS: Hypochromasia Present (Not Present); Platelet Estimate Normal (Normal)
[2021-09-13] MEDS: DilTIAZem CD (24hr) 120 MG CAP.ER.24H PO SCH (10:42)
[2021-09-13] MEDS: BuPROPion XL (24 HR) 150 MG TABLET PO SCH (10:42)
[2021-09-13] MEDS: (Vortioxetine Hydrobromide [Trintellix] 10 MG Tablet) PO SCH (10:43)
[2021-09-13] MEDS: Topiramate 25 MG TABLET PO SCH ×2 (10:43→21:30)
[2021-09-13] MEDS ORDERED: hydrOXYzine pamoate 25 MG CAPSULE PO PRN (11:06)
[2021-09-13] MEDS ORDERED: 0.9 % Sodium Chloride 250 ML ONE (11:17)
[2021-09-13] MEDS ORDERED: 0.9 % Sodium Chloride 250 ML IVC ONE (11:26)
[2021-09-13 12:24] LABS: Hematocrit 25.6 % (35.3-44.9); Hemoglobin 7.1 g/dL (11.5-15.4)
[2021-09-13 17:51] LABS: Mean Platelet Volume 8.8 fL (9.4-12.4)
[2021-09-13 17:53] LABS: Hematocrit 26.2 % (35.3-44.9); Hemoglobin 7.4 g/dL (11.5-15.4); Mean Corpuscular HGB Conc 28.2 g/dL (31.6-35.5); Mean Corpuscular Hemoglobin 23.3 pg (28.0-33.3); Mean Corpuscular Volume 82.4 fL (83.0-100.0); Platelet Count 341 K/mcL (140-400); Red Blood Count 3.18 M/mcL (3.82-4.97); Red Cell Distribution Width 15.9 % (11.5-14.5); White Blood Count 6.1 K/mcL (4.3-11.1)
[2021-09-13 21:05] LABS: Amylase 20 Units/L (29-103); Lipase 28 Units/L (11-82)
[2021-09-14] MEDS: Loratadine 10 MG TABLET PO SCH ×2 (03:51→10:03)
[2021-09-14 05:02] LABS: Red Cell Distribution Width 15.9 % (11.5-14.5)
[2021-09-14 05:04] LABS: Hematocrit 25.6 % (35.3-44.9); Hemoglobin 7.2 g/dL (11.5-15.4); Mean Corpuscular HGB Conc 28.1 g/dL (31.6-35.5); Mean Corpuscular Hemoglobin 23.4 pg (28.0-33.3); Mean Corpuscular Volume 83.1 fL (83.0-100.0); Platelet Count 311 K/mcL (140-400); Red Blood Count 3.08 M/mcL (3.82-4.97); White Blood Count 4.8 K/mcL (4.3-11.1)
[2021-09-14 05:19] LABS: BUN/Creatinine Ratio 19 (6-26); Blood Urea Nitrogen 9 mg/dL (6-20); Calcium 7.9 mg/dL (8.6-10.3); Carbon Dioxide 21 mEq/L (23-29); Chloride 108 mEq/L (98-107); Glucose 132 mg/dL (70-105); Osmolality,Calculated 283 (280-300); Potassium 3.7 mEq/L (3.5-5.1); Sodium 136 mEq/L (136-145); eGFR For African Americans > 60 (> 60); eGFR For Non-African Americans > 60 (> 60)
[2021-09-14] MEDS: BuPROPion XL (24 HR) 150 MG TABLET PO SCH (10:03)
[2021-09-14] MEDS: Topiramate 25 MG TABLET PO SCH (10:04)
[2021-09-14] MEDS: DilTIAZem CD (24hr) 120 MG CAP.ER.24H PO SCH (10:05)
[2021-09-14] MEDS: (Vortioxetine Hydrobromide [Trintellix] 10 MG Tablet) PO SCH (10:07)
[2021-09-14 10:41] VITALS: BP 105/70; PULSE 70; TEMP 98.1; O2SAT 98
== END 2021-09-14 18:05 | disposition home or self-care (01) | DRG 690 ==
LOC: EMEROOARM 13:37 → 4WAOSI 13:37 → SUATTDRO 22:31 → 4WAOSI 22:40 → CDU 09-12 03:06 → 3NENU 09-12 09:03
PROVIDERS: ADMIT Internal Medicine; ATTEND Family Medicine